=== PATIENT | male | born 1990 | race Caucasian/White ===

== ENCOUNTER 2017-06-20 13:02 | Emergency (ER) | payer SELFPAY ==
[~2017-06-20] VITALS: Ht 177.8 cm; Wt 75.0 kg
[2017-06-20 15:19] LABS: BASOPHILS % 0.3 % (0.0-2.0); EOSINOPHILS % 0.8 % (0.0-5.0); HEMATOCRIT. 42.2 % (42.0-52.0); HEMOGLOBIN. 14.5 g/dL (14.0-18.0); LYMPHOCYTES % 36.2 % (20.0-50.0); MEAN CORPUSCULAR VOLUME 90.4 fL (80.0-94.0); MEAN PLATELET VOLUME 6.4 fl (7.4-10.4); MONOCYTES % 10.8 % (2.0-8.0); NEUTROPHILS % 51.9 % (40.0-76.0); PLATELET 231 x1000/uL (130-400); RED BLOOD CELL COUNT 4.67 mill/uL (4.7-6.1); RED CELL DISTRIBUTION WIDTH 12.7 % (11.6-14.6)
[2017-06-20 15:20] LABS: CHLORIDE 105 mEq/L (98-107)
[2017-06-20 15:23] LABS: CARBON DIOXIDE 31 mEq/L (21-32)
[2017-06-20 16:20] LABS: CLARITY URINE CLEAR (CLEAR); COLOR URINE YELLOW (YELLOW); KETONES URINE NEGATIVE (NEGATIVE); LEUKOCYTE ESTERASE URINE NEGATIVE (NEGATIVE); NITRITE URINE NEGATIVE (NEGATIVE); OCCULT BLOOD URINE NEGATIVE (NEGATIVE); PH URINE 6.5 (4.5-8.0); PROTEIN URINE NEGATIVE (NEGATIVE); SPECIFIC GRAVITY URINE 1.007 (1.005-1.030); UROBILINOGEN URINE 0.2 E.U./dL (0.2-1.0)
[2017-06-20 16:34] LABS: *AMPHETAMINES SCREEN URINE NEGATIVE (NEGATIVE); *BARBITURATES SCREEN URINE NEGATIVE (NEGATIVE); *BENZODIAZEPINES SCREEN URINE NEGATIVE (NEGATIVE); *COCAINE SCREEN URINE NEGATIVE (NEGATIVE); CANNABINOID URINE SCREEN PRESUMTIVE POSITIVE (NEGATIVE); METHADONE URINE SCREEN NEGATIVE (NEGATIVE); OPIATES URINE SCREEN NEGATIVE (NEGATIVE); PHENCYCLIDINE URINE SCREEN NEGATIVE (NEGATIVE)
[2017-06-20] MEDS ORDERED: AZITHROMYCIN 500 MG TABLET PO ONE (17:15)
[2017-06-20] MEDS ORDERED: CEFTRIAXONE SODIUM 250 MG/VIAL IM ONE (17:15)
[2017-06-20] MEDS ORDERED: LIDOCAINE HCL 1% 20ML VIAL (Pyxis) INJ MC ONE (17:30)
[2017-06-20 18:04] VITALS: BP 110/66
[2017-06-23 06:18] LABS: CHLAMYDIA TRACHOMATIS NAA Negative (Negative); NEISSERIA GONORRHOEAE NAA Negative (Negative)
== END 2017-06-20 18:08 | disposition home or self-care (01) ==
LOC: ER 13:20
DX: N45.2 Orchitis (principal)
CPT/HCPCS: 36415; 76870; 80053; 80305; 81003; 83690; 85025; 87491; 87591; 93976; 96372; 99285; J0696; J3490; Z7610